=== PATIENT | male | born 1985 | race African-American/Black ===

== ENCOUNTER 2016-04-01 13:28 | Emergency (ER) | payer OTHER ==
[~2016-04-01] VITALS: Ht 185.4 cm; Wt 74.0 kg
[~2016-04-01 13:28] MED LIST: QUET400T PO; SERT-165 PO
[2016-04-01 13:47] VITALS: Ht 185.4 cm; Wt 74.0 kg
--- NOTE | 2016-04-01 14:07 | ERA ---
ER Documentation Chief Complaint Date/Time DATE: 04/01/16 TIME: 14:05 Chief Complaint pt bib self with c/o taking drugs and wanting to "kill himself" HPI 30-year-old male states he has been noncompliant with his psychiatric medications for the last 2 months while he has been using methamphetamine. Patient presents the emergency department today with suicidal ideation. Patient has no definitive plan but states she is considering a number of different plans. Patient has been hospitalized within the last 2 months. Patient denies any acute medical complaints at this time. ROS All systems reviewed and are negative except as per history of present illness. Medications Home Meds Reported Medications Quetiapine Fumarate* (Seroquel*) 400 Mg Tablet, 400 MG PO HS, TAB 07/01/15 Sertraline Hcl* (Sertraline Hcl*) 100 Mg Tablet, 100 MG PO DAILY, #30 TAB 07/01/15 Allergies Allergies: Coded Allergies: No Known Allergy (Unverified , 02/16/15) PMhx/Soc History of Surgery: No Anesthesia Reaction: No Hx Neurological Disorder: No Hx Respiratory Disorders: No Hx Cardiac Disorders: No Hx Psychiatric Problems: Yes (Patient is on current psych medication - BIPOLAR ; ANXIETY; DEPRESSION) Hx Miscellaneous Medical Probl: No Hx Alcohol Use: Yes Hx Substance Use: Yes Hx Tobacco Use: Yes (1 PACK A DAY) FmHx Noncontributory for chief complaint Physical Exam Vitals Vital Signs Date Time Temp Pulse Resp B/P Pulse Ox O2 Delivery O2 Flow Rate FiO2 04/01/16 13:47 98.9 87 16 129/74 99 Physical Exam GENERAL: The patient is well developed and appropriate for usual state of health in no apparent distress HEENT: Pupils equal, round, and reactive to light. EOMI. There is no scleral icterus. NECK: C-spine is soft and supple, there is no meningismus. There is no cervical lymphadenopathy. LUNGS: Clear to auscultation bilaterally. There are no rales, wheezes or rhonchi. HEART: Regular rate and rhythm, no murmurs, clicks, rubs or gallops. ABDOMEN: Soft, non-tender, non-distended. There are bowel sounds in all four quadrants. No rebound or guarding. EXTREMITIES: There is no peripheral cyanosis or edema. No focal swelling or erythema. NEURO: The patient moves all four extremities with 5/5 strength. Cranial nerves II - XII are intact. Normal gait. Alert and oriented SKIN: There is no apparent rash or petechiae. HEME/LYMPHATIC: There is no evidence of excessive bruising or lymphedema. PSYCHIATRIC: Patient is awake alert and oriented. He has a normal thought process and a normal speech pattern. He denies auditory or visual hallucinations. He is expressing suicidal ideations. He does not appear to be agitated or delirious. Results 24 hrs Current Medications Medications (Trade) Dose Ordered Sig/[place] Route PRN Reason Start Time Stop Time Status Last Admin Dose Admin Quetiapine Fumarate (Seroquel) 100 mg ONCE ONCE PO 04/01/16 14:30 04/01/16 14:31 Sertraline HCl (Zoloft) 50 mg ONCE ONCE PO 04/01/16 14:30 2 14:31 Procedures/MDM Patient was taken to a room, seen and evaluated. Comfort measures were initiated. Diagnostic tests were ordered and reviewed. CONSULTATION: Tele psych was consulted and group social worker was consulted MEDICAL DECISION MAKING: Patient presents with symptomatology consistent with the decompensation of previously diagnosed psychiatric disease. Based on history, physical exam and appropriate lab tests, I appreciate no evidence of significant life threatening injury or illness that precludes psychiatric hospitalization. Patient is thus "medically clear" for psychiatric admission. In regards to the psychiatric complaints, this patient has clear evidence of high risk psychiatric symptoms with significant risk for decompensation, thus requiring an involuntary hold and hospitalization for stabilization. Departure Diagnosis: Primary Impression: Schizoaffective disorder Additional Impression: Methamphetamine abuse CARIDAD COPELAND Apr 01, 2016 14:07
[2016-04-01] MEDS ORDERED: SERTRALINE 50 MG TAB PO ONE (14:30)
[2016-04-01] MEDS ORDERED: QUETIAPINE 100 MG TAB PO ONE (14:30)
[2016-04-01 14:52] LABS: ALBUMIN 3.7 g/dl (3.3-4.9); CHLORIDE 100 mmol/L (97-110); SODIUM 139 mmol/L (135-144)
[2016-04-01 14:53] LABS: POTASSIUM 4.1 mmol/L (3.5-5.1)
[2016-04-01 14:54] LABS: BILIRUBIN,INDIRECT 0.3 mg/dl (0-1.1); BILIRUBIN,TOTAL 0.3 mg/dl (0.2-1.3); CREATININE 1.01 mg/dl (0.61-1.24)
[2016-04-01 14:55] LABS: ALANINE AMINOTRANSFERASE 33 IU/L (13-69); ALBUMIN/GLOBULIN RATIO 1.23; ALKALINE PHOSPHATASE 51 IU/L (42-121); ANION GAP 17 (8-16); ASPARTATE AMINO TRANSFERASE 42 IU/L (15-46); BLOOD UREA NITROGEN 8 mg/dl (7-20); CALCIUM 8.8 mg/dl (8.4-10.2); CARBON DIOXIDE 26 mmol/L (21-31); GLUCOSE 87 mg/dl (70-220); TOTAL PROTEIN 6.7 g/dl (6.1-8.1)
[2016-04-01 14:56] LABS: ACETAMINOPHEN < 10.0 ug/ml (10.0-30.0); SALICYLATE < 1.0 mg/dl (5.0-30.0)
[2016-04-01 15:01] LABS: BASOPHILS % 0.2 % (0.0-2.0); HEMATOCRIT 41.7 % (42.0-52.0); HEMOGLOBIN 13.8 g/dl (14.0-18.0); LYMPHOCYTES # 0.9 10^3/ul (0.8-2.9); LYMPHOCYTES % 7.2 % (15.0-51.0); MEAN CORPUSCULAR HEMOGLOBIN 30.3 pg (29.0-33.0); MEAN CORPUSCULAR HGB CONC 33.2 g/dl (32.0-37.0); MEAN CORPUSCULAR VOLUME 91.4 fl (82.0-101.0); MEAN PLATELET VOLUME 9.2 fl (7.4-10.4); MONOCYTE # 1.2 10^3/ul (0.3-0.9); MONOCYTES % 9.1 % (0.0-11.0); NEUTROPHIL # 10.7 10^3/ul (1.6-7.5); NEUTROPHILS % 83.5 % (39.0-77.0); PLATELET COUNT 175 10^3/UL (140-440); RED BLOOD COUNT 4.56 10^6/ul (4.70-6.10); RED CELL DISTRIBUTION WIDTH 14.7 % (11.5-14.5); UNCORRECTED WBC 12.8 10^3/ul (4.8-10.8); WHITE BLOOD COUNT 12.8 10^3/ul (4.8-10.8)
[2016-04-01 15:23] LABS: CONDITION 1; LH ANALYZER COMMENTS 1
[2016-04-01 15:24] LABS: URINE BILIRUBIN (Dip) NEGATIVE (NEGATIVE); URINE BLOOD (Dip) NEGATIVE (NEGATIVE); URINE COLOR LT. YELLOW (YELLOW); URINE GLUCOSE (Dip) NEGATIVE (NEGATIVE); URINE KETONES (Dip) NEGATIVE (NEGATIVE); URINE LEUKOCYTE ESTERASE (Dip) NEGATIVE (NEGATIVE); URINE NITRITE (Dip) NEGATIVE (NEGATIVE); URINE UROBILINOGEN (Dip) 0.2 E.U./dL (0.1-1.0)
[2016-04-01 15:33] LABS: ADD UMIC NO; URINE TOTAL PROTEIN (Dip) NEGATIVE (NEGATIVE)
--- NOTE | 2016-04-01 15:34 | PSY ---
Date/Time of Note Date/Time of Note DATE: 04/01/16 TIME: 15:29 Psychiatric Subjective Eval Consent Pt consented to telemedicine: Yes Subjective Evaluation Patient location: emergency Chief Complaint: pt bib self with c/o taking drugs and wanting to "kill himself " Reason for consult: suicidal ideation History of present illness Patient is a 30 year old "dual diagnosed" male with paranoid schizophrenia and drug use. He has been off of his psychiatric medications for two weeks and has started to deteriorate. He reports a depressed mood, increased paranoia, not sleeping for 5 nights, racing thoughts, and hearing voices telling him that he is "no good." He has been having thoughts of suicide - by police. He has been using meth, cannabis and alcohol. His last use of meth was two days ago. His last use of cannabis and alcohol was this morning. He decided to come to the ER because a friend who he was stayed with him last night told him he was not doing okay and needed to get help. Past psychiatric history Past diagnosis of schizoaffective, bipolar type, schizophrenia and substance abuse. Past hospitalizations. Hospitalization: Suicidal Attempt(s) Family History Unremarkable Medical history Problems Medical Problems: (1) Methamphetamine abuse Status: Acute (2) Schizoaffective disorder Status: Acute (3) Schizophrenia Status: Acute (4) Suicidal ideation Status: Acute Allergies: Coded Allergies: No Known Allergy (Unverified , 02/16/15) Substance Abuse Substance abuse history: Yes Social History Marital status: single Level of education: N/A DPA/Conservatorship: No Occupation/Long-Term: [employer] Psychiatric Objective Eval Physical Examination: Physical Examination: Applicable Sleep: Insomnia Appetite: Decreased Energy: Increased Interest: Decreased Mental Status Examination: Appearance: Groomed Eye Contact: Fair Psychomotor Activity: Normal Behavior: Cooperative Speech: Soft AFFECT: Blunt Mood: Depressed Though Process: Linear Thought Content: Hallucinations Suicidal: Yes Homicidal: No On 72 hour hold: No Orientation: x4 Cognition: Alert Insight: Impared Judgement: Impared Laboratory Results Laboratory Tests Test 04/01/16 14:13 Acetaminophen Level < 10.0ug/ml Alanine Aminotransferase (ALT/SGPT) 33IU/L Albumin 3.7g/dl Albumin/Globulin Ratio 1.23 Alkaline Phosphatase 51IU/L Anion Gap 17 Aspartate Amino Transf (AST/SGOT) 42IU/L Basophils # 0.010^3/ul Basophils % 0.2% Blood Morphology Comment Blood Urea Nitrogen 8mg/dl Calcium Level 8.8mg/dl Carbon Dioxide Level 26mmol/L Chloride Level 100mmol/L Creatinine 1.01mg/dl Direct Bilirubin 0.00mg/dl Eosinophils # 0.010^3/ul Eosinophils % 0.0% Ethyl Alcohol Level 79.0mg/dl Globulin 3.00g/dl Glucose Level 87mg/dl Hematocrit 41.7% Hemoglobin 13.8g/dl Indirect Bilirubin 0.3mg/dl Lymphocytes # 0.910^3/ul Lymphocytes % 7.2% Mean Corpuscular Hemoglobin 30.3pg Mean Corpuscular Hemoglobin Concent 33.2g/dl Mean Corpuscular Volume 91.4fl Mean Platelet Volume 9.2fl Monocytes # 1.210^3/ul Monocytes % 9.1% Neutrophils # 10.710^3/ul Neutrophils % 83.5% Nucleated Red Blood Cells # 0.010^3/ul Nucleated Red Blood Cells % 0.0/100WBC Platelet Count 47273^3/UL Potassium Level 4.1mmol/L Red Blood Count 4.5610^6/ul Red Cell Distribution Width 14.7% Salicylates Level < 1.0mg/dl Sodium Level 139mmol/L Total Bilirubin 0.3mg/dl Total Protein 6.7g/dl White Blood Count 12.810^3/ul Assessment and Plan Assessment/Diagnosis [place] I: Unspecified Psychotic Disorder, Stimulant Use Disorder, Suicidal Ideation Recommendation/Plan Medication Management Per inpatient psychiatry. Psychotherapy N/A Pt. Caregiver/Family Education N/A Follow-up/Disposition Recommend transfer to inpatient psychiatry for danger to self. Patient appears to be unsafe for outpatient treatment. Recommend hold for DTS. 5150 Recommendation: Place Hold RAMIREZ QUEEN Apr 01, 2016 15:34
[2016-04-01 16:41] LABS: BARBITURATES Negative (NEGATIVE); BENZODIAZEPINES Negative (NEGATIVE); CANNABINOIDS Positive (NEGATIVE); COCAINE Negative (NEGATIVE); OPIATES Negative (NEGATIVE)
[2016-04-02] MEDS ORDERED: ZIPRASIDONE 20 MG CAP PO ONE (17:00)
[2016-04-03] MEDS ORDERED: QUETIAPINE 100 MG TAB PO ONE (19:00)
[2016-04-04] MEDS ORDERED: QUETIAPINE 100 MG TAB PO ONE (21:30)
[2016-04-04 22:16] VITALS: BP 136/78; PULSE 97; RESP 18; TEMP 98.2
== END 2016-04-04 22:31 ==
LOC: E/R 13:28
DX: F25.9 Schizoaffective disorder, unspecified (principal); F17.210 Nicotine dependence, cigarettes, uncomplicated
CPT/HCPCS: 36415; 80053; 80306; 80307; 81003; 85025; 99285